=== PATIENT | female | born 1955 | race Caucasian/White ===

== ENCOUNTER 2016-07-04 06:03 | Day surgery (SDC) ==
[~2016-07-04 06:03] MED LIST: LEVAQUIN 500 MG/D5W 100 ML ONE; LR 1,000 ML ONE
[2016-07-04 06:47] LABS: MANUAL DIFF NEEDED? NO
[2016-07-04 06:50] LABS: BASO% 0.2 % (0.0-0.8); EOS# 0.24 X1000 (0.0-0.7); EOS% 3.8 % (0.0-10.0); HEMATOCRIT 43.8 % (37.0-47.0); HEMOGLOBIN 15.1 g/dL (12.0-16.0); LYMPH# 2.92 X1000 (1.2-3.4); LYMPH% 45.8 % (20.5-51.1); MCH 29.6 PG (27-31); MCHC 34.5 g/dL (33-37); MCV 85.9 FL (81-99); MONO# 0.62 X1000 (0.11-0.59); MONO% 9.7 % (1.7-9.3); MPV 11.2 FL (7.4-10.4); NEUT% 40.5 % (42.2-75.2); PLT 268 X1000 (130-400)
--- NOTE | 2016-07-04 07:12 | EKG Report ---
Test Performed on : 07/04/2016 06:34:18 AM Test Reason : PREOP Blood Pressure : / mmHG Vent. Rate : 057 BPM Atrial Rate : 057 BPM P-R Int : 130 ms QRS Dur : 078 ms QT Int : 536 ms P-R-T Axes : 070 035 000 degrees QTc Int : 521 ms Sinus bradycardia. T wave abnormality, consider lateral ischemia Prolonged QT Abnormal ECG When compared with ECG of 03-MAY-2016 16:11, T wave inversion now evident in Inferior leads T wave inversion now evident in Lateral leads Clinical Correlation advised new changves s/o inferior/lateral ischemia Confirmed by Reymundo Clement DO ([id number]) on 07/04/2016 6:50:54 PM
[2016-07-04 07:13] LABS: AGAP 13; ALBUMIN 3.8 g/dL (3.5-5.0); ALKALINE PHOSPHATASE 102 U/L (32-104); BUN 10 mg/dL (8-22); CALCIUM 9.1 mg/dL (8.8-10.2); CHLORIDE 101 mmol/L (98-107); COSMO 279; GOT 32 U/L (10-30); GPT 17 U/L (10-36); POTASSIUM 3.6 mmol/L (3.5-5.1); SODIUM 141 mmol/L (136-145); TCO2 27 mmol/L (25-35); TOTAL BILIRUBIN 0.41 mg/dL (0.20-1.00); TOTAL PROTEIN 7.1 g/dL (6.3-8.3)
--- NOTE | 2016-07-04 09:14 | Diag Imaging Result Document ---
PROCEDURE NAME: CHEST-2 VIEWS - 07/04/2016 PA AND LATERAL RADIOGRAPHS OF THE CHEST: COMPARISON: 05/03/2016. FINDINGS: There is evidence of prior granulomatous disease, stable. The lungs are essentially clear otherwise. There is no definite pleural fluid collection. Cardiac silhouette and central vasculature are grossly unremarkable. There is, perhaps, mild hyperinflation suggesting possible COPD, stable. IMPRESSION: Possible mild COPD changes. No definite acute pathology.
[2016-07-04 09:21] LABS: URINE MICRO REVIEW NEEDED? NO; URINE SOURCE VOIDED
[2016-07-04 09:25] LABS: BILIRUBIN URINE NEGATIVE (NEGATIVE); BLOOD URINE TRACE (NEGATIVE); COLOR YELLOW; GLUCOSE URINE NEGATIVE (NEGATIVE); LEUKOCYTES URINE TRACE (NEGATIVE); NITRITE URINE NEGATIVE (NEGATIVE); PH URINE 6.5; PROTEIN URINE NEGATIVE (NEGATIVE); SP GRAVITY URINE 1.012; TURBIDITY URINE CLEAR (CLEAR); UR EPITHELIAL CELLS <10 /HPF (<10); URINE BACTERIA 1+ /HPF; URINE RBC <10 /HPF (<10); URINE WBC <10 /HPF (<10); UROBILINOGEN URINE 2 mg/dL (NORMAL)
[2016-07-04] MEDS ORDERED: SENSORCAINE 0.25%/EPI 1:200,000 ONE (09:45)
[2016-07-04] MEDS ORDERED: SODIUM CHLORIDE 0.9% ONE (09:45)
[2016-07-04] MEDS ORDERED: LR 1,000 ML ONE ×2 (09:45→12:36)
[2016-07-04] MEDS: DILAUDID ONE ×4 (11:40→12:10)
--- NOTE | 2016-07-04 11:44 | OPERATIVE NOTE ---
PROCEDURE DATE: 07/04/2016 PREOPERATIVE DIAGNOSES: 1. Chronic acalculous cholecystitis. 2. History of hepatitis C. PROCEDURE: 1. Laparoscopic cholecystectomy. 2. Operative cholangiogram with liver biopsy. OPERATIVE FINDINGS: A fair amount a cirrhosis of the liver, chronic cholecystitis. Negative OC except for dilated common bile duct, but there was flow of contrast into the duodenum. DESCRIPTION OF PROCEDURE: The patient was brought to the operating room. After satisfactory induction of IV and endotracheal anesthesia, athrombic TEDs and a Kelly catheter were placed. Her abdomen was broadly prepped and draped in the appropriate manner for laparoscopy. Initially, the infraumbilical area was infiltrated with 0.25% Marcaine with epinephrine. Dissection was taken sharply down through skin and subcutaneous tissue. Fascia was tacked with 0 Surgilon and incised. Under direct visualization, a Felisha trocar was placed. The abdomen was insufflated to 3 and 1/2 L of carbon dioxide. Again, after infiltration with Marcaine and epinephrine, one 10 and two 5 mm trocars were placed. The patient was repositioned. The gallbladder was seen to be involved with dense omental adhesions. These were peeled down. The gallbladder was grasped and retracted superiorly. The hilar structures were dissected. The cystic artery were skeletonized, doubly clipped, and divided. The cystic duct cholangiogram revealed good flow of contrast into the duodenum but a dilated common duct system. The catheter was removed. The duct was doubly clipped and divided. The gallbladder was dissected from the liver bed with the use of monopolar scissors and removed. Inspection of the liver bed revealed some bleeding points that were controlled by electrocautery. The superior area of the gallbladder fossa subsequently underwent a liver biopsy with hot scissors. This was, likewise, controlled with electrocautery and Surgicel gauze. The subhepatic and subphrenic spaces were subsequently aspirated free of the small amount of bile and blood. All trocars were removed after abdominal deflation. The subumbilical incision underwent fascial closures of 0 Surgilon. All skin incisions were closed with stainless steel clips. Sterile dressings were applied. She was awakened and extubated in the operating room and transferred to recovery. ESTIMATED BLOOD LOSS: Around 20 mL.
[2016-07-04] MEDS ORDERED: FENTANYL ONE (12:26)
[2016-07-04] MEDS ORDERED: DIPRIVAN 1% ONE (12:26)
[2016-07-04] MEDS ORDERED: ROBINUL ONE (12:36)
[2016-07-04] MEDS ORDERED: XYLOCAINE-MPF 2% ONE (12:36)
[2016-07-04] MEDS ORDERED: ZOFRAN ONE (12:36)
[2016-07-04] MEDS ORDERED: NEOSTIGMINE ONE (12:36)
[2016-07-04] MEDS ORDERED: NORCO-10 ONE (12:36)
[2016-07-04] MEDS ORDERED: DECADRON ONE (12:36)
[2016-07-04 13:02] VITALS: BP 166/82
--- NOTE | 2016-07-04 13:39 | Diag Imaging Result Document ---
PROCEDURE NAME: OPERATIVE CHOLANGIOGRAM - 07/04/2016 INTRAOPERATIVE CHOLANGIOGRAM: COMPARISON: None available. FINDINGS: A single spot fluoroscopic view of the opacified common bile duct was provided which was performed during cholecystectomy by Dr. López Mcgrath. There appears to be a long segment of narrowing at the distal common bile duct. A long segment stricture is possible. Please correlate with live fluoroscopic imaging. The common bile duct otherwise is perhaps slightly dilated. No well-defined filling defect can be identified. Contrast is seen flowing into the small bowel. IMPRESSION: As above. Please correlate with live fluoroscopic imaging.
== END 2016-07-04 13:45 | disposition home or self-care (01) ==
LOC: OPS 06:03
PROVIDERS: ATTEND Surgery
DX: K81.1 Chronic cholecystitis (principal); K74.0 Hepatic fibrosis; E11.9 Type 2 diabetes mellitus without complications; M19.90 Unspecified osteoarthritis, unspecified site; B19.20 Unspecified viral hepatitis C without hepatic coma; Z87.891 Personal history of nicotine dependence; Z23 Encounter for immunization
CPT/HCPCS: 71020; 74300; 80053; 81001; 85025; 88304; 88307; 88313; 93005; 93010; J1100; J1170; J2405; J3010; J7120; Q9966; J2710

== ENCOUNTER 2016-09-13 14:41 | Observation (INO) ==
[2016-09-13] MEDS ORDERED: ASPIRIN PO STA (14:44)
[2016-09-13 15:08] LABS: MANUAL DIFF NEEDED? NO
[2016-09-13 15:09] LABS: BASO% 0.3 % (0.0-0.8); EOS# 0.34 X1000 (0.0-0.7); EOS% 4.4 % (0.0-10.0); HEMATOCRIT 39.8 % (37.0-47.0); HEMOGLOBIN 12.8 g/dL (12.0-16.0); IMM GRAN# 0.01 X1000 (0.0-0.04); IMM GRAN% 0.1 % (0.0-0.5); LYMPH% 49.6 % (20.5-51.1); MCHC 32.2 g/dL (33-37); MONO# 0.82 X1000 (0.11-0.59); MONO% 10.7 % (1.7-9.3); MPV 10.7 FL (7.4-10.4); NEUT% 34.9 % (42.2-75.2); PLT 283 X1000 (130-400); RBC 4.74 XMIL (4.2-5.4)
--- NOTE | 2016-09-13 15:21 | PROVIDER DOCUMENTATION ---
HPI-Chest Pain - General Chief Complaint: Chest Pain Stated Complaint: CHEST PAIN/NAUSEA Time Seen by Provider: 09/13/16 14:54 Source: patient Allergies/Adverse Reactions: Patient Allergies Allergy/AdvReac Type Severity Reaction Status Date / Time codeine Allergy RASH Verified 07/11/16 11:06 Penicillins Allergy RASH Verified 07/11/16 11:06 Home Medications: Home Medication List Medication Instructions Recorded Confirmed Last Taken Type Gabapentin [Neurontin] 800 mg PO 4XDAY 05/30/14 07/22/16 07/22/16 15:00 History Methadone 40 mg PO DAILY 05/30/14 07/22/16 07/22/16 03:00 History Metformin [Glucophage] 500 mg PO DAILY 04/11/15 07/22/16 07/10/16 History Doxycycline 100 mg PO BID #14 capsule 07/16/16 07/22/16 07/22/16 10:00 Rx Hydrocodone/Acetaminophen [Friendship 1 each PO Q4H PRN PRN #30 tablet 08/10/16 Unknown Rx 10-325 Tablet] Multivitamin with Iron [One Daily 1 each PO DAILY #0 tablet 08/10/16 Unknown Rx with Iron] Ondansetron HCl [Zofran] 4 mg PO Q4H PRN PRN #10 tablet 08/10/16 Unknown Rx - History of Present Illness-CP Nature of Presenting Problem: patient is a 61 y/o F that presents to the ER after having an episode of back pain with substernal chest pain and nausea with diaphoresis. patient was on couch watching movie when episode happened. she has no pain or symptoms now. patient had recent stenting of CBD 6 weeks ago Location: reports: substernal Chest Pain Radiation: reports: back Quality of Pain: reports: dull Severity in ED: moderate Onset/Duration: abrupt, this afternoon Timing: improving, gone now Context/Activities at Onset: reports: light activity Modifying Factors: improves with: nothing Associated Symptoms: reports: back pain, diaphoresis, nausea, shortness of breath. denies: abdominal pain, dizziness, fatigue, fever/chills, vomiting Nitro Today/Relief: no nitro taken today Aspirin Treatment Today: 325 mg x 1, provided by ED Prior Chest Pain/Cardiac Workup: reports: non-cardiac Similar Symptoms Previously?: No Recently Seen Here or By Another Healthcare Provider: No Review of Systems - Adult - REVIEW OF SYSTEMS - ADULT Constitutional: denies: chills, fever Eyes: reports: no symptoms reported Ears, Nose, Mouth & Throat: denies: ear pain, sinus problem, throat pain, throat swelling Cardiovascular: reports: chest pain. denies: palpitations, syncope Respiratory: reports: shortness of breath. denies: cough, wheezing Gastrointestinal: reports: nausea. denies: abdominal pain, diarrhea, vomiting Genitourinary: reports: no symptoms reported Musculoskeletal: reports: back pain. denies: joint pain, muscle aches Integumentary: reports: no symptoms reported Neurological: denies: dizziness/vertigo, headache/migraines, seizure, syncope Psychiatric: reports: no symptoms reported Endocrine: reports: no symptoms reported Hematologic/Lymphatic: reports: no symptoms reported Allergic/Immunologic: reports: no symptoms reported All Other Systems: Reviewed and Negative Past History - Adult - PAST MEDICAL HISTORY-ADULT Review of Records: reports: Old Records Reviewed, Nursing Assessment Review, Medications Reviewed Musculoskeletal: reports: chronic pain Psychiatric: reports: anxiety Endocrine/Immune: reports: Diabetes - PRIOR SURGERIES/PROCEDURES Surgical/Procedure History: reports: cholecystectomy (with bile duct stent), hysterectomy, bowel surgery (polyps removed and hemorroidectomy), joint replacement, other (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.) - IMMUNIZATION STATUS Childhood Immunizations: See Nurse Assessment Flu Vaccine: See Nurse Assessment - FAMILY HISTORY Family History: reviewed, not pertinent - SOCIAL HISTORY Smoking: quit greater than 1 year, cigarettes Living Situation: family Physical Exam-General - PHYSICAL EXAM-ADULT Initial Vital Signs Reviewed: Yes - CONSTITUTIONAL General Appearance: alert, no apparent distress - EYES Eyes: PERRL/EOMI, pink conjunctivae - HEAD, EARS, NOSE, MOUTH & THROAT HENMT: normocephalic/atraumatic, moist mucous membranes, normal ENT inspection - NECK Neck: full range of motion, normal inspection. negative: lymphadenopathy - RESPIRATORY Respiratory: chest non-tender, lungs clear, normal breath sounds, no respiratory distress, no accessory muscle use - CARDIOVASCULAR Cardiovascular: regular rate, rhythm, no edema, no murmur - GASTROINTESTINAL (ABDOMEN) Abdominal Exam: normal bowel sounds, soft, no organomegaly, no pulsatile mass, tenderness (mild rUQ) - MUSCULOSKELETAL Extremity: normal capillary refill, pelvis stable, other (right prosthetic leg) - SKIN Integumentary: normal color, warm/dry - NEUROLOGIC Neurologic: grossly normal, no motor/sensory deficits - PSYCHIATRIC Psych/Mental Status: normal mood/affect, normal thought content, normal thought process, oriented x 3 Progress - PLAN OF CARE/RESULTS Progress/Plan/Lab Results: plan of care-cardiac work up 1542-due to elevated d-dimer, ct angio r/o pe ordered Vital Signs Temp Pulse Resp BP Pulse Ox 09/13/16 17:19 59 L 22 119/71 96 09/13/16 16:27 67 18 114/62 98 09/13/16 14:47 97.6 F 71 18 136/75 97 codeine Allergy (Verified 07/11/16 11:06) RASH Penicillins Allergy (Verified 07/11/16 11:06) RASH Gabapentin [Neurontin] 800 mg PO 4XDAY 05/30/14 Methadone 40 mg PO DAILY 05/30/14 Metformin [Glucophage] 500 mg PO DAILY 04/11/15 Doxycycline 100 mg PO BID #14 capsule 07/16/16 Hydrocodone/Acetaminophen [Friendship 10-325 Tablet] 1 each PO Q4H PRN PRN #30 tablet 08/10/16 Multivitamin with Iron [One Daily with Iron] 1 each PO DAILY #0 tablet 08/10/16 Ondansetron HCl [Zofran] 4 mg PO Q4H PRN PRN #10 tablet 08/10/16 Laboratory 09/13/16 09/13/16 09/13/16 15:00 15:00 15:00 WBC 7.66 RBC 4.74 Hgb 12.8 Hct 39.8 MCV 84.0 MCH 27.0 MCHC 32.2 L RDW Std Deviation 16.8 H Plt Count 283 MPV 10.7 H Immature Gran % (Auto) 0.1 Neut % (Auto) 34.9 L Lymph % (Auto) 49.6 [place] % (Auto) 10.7 H Eos % (Auto) 4.4 Baso % (Auto) 0.3 Immature Gran # (Auto) 0.01 Neut # (Auto) 2.67 Lymph # (Auto) 3.80 H [place] # (Auto) 0.82 H Eos # (Auto) 0.34 Baso # (Auto) 0.02 PT 13.7 INR 1.02 APTT (Factor Assay) 35.3 D-Dimer 1.08 H Sodium Potassium Chloride Carbon Dioxide Anion Gap BUN Creatinine Estimated GFR/1.73 m2 BUN/Creatinine Ratio Glucose Calculated Osmolality Calcium Magnesium Total Bilirubin AST ALT Alkaline Phosphatase Creatine Kinase Troponin T Vtz-[id number]-Gdxuurojvge Pept Total Protein Albumin Globulin Albumin/Globulin Ratio 09/13/16 09/13/16 09/13/16 15:00 15:00 15:00 WBC RBC Hgb Hct MCV MCH MCHC RDW Std Deviation Plt Count MPV Immature Gran % (Auto) Neut % (Auto) Lymph % (Auto) [place] % (Auto) Eos % (Auto) Baso % (Auto) Immature Gran # (Auto) Neut # (Auto) Lymph # (Auto) [place] # (Auto) Eos # (Auto) Baso # (Auto) PT INR APTT (Factor Assay) D-Dimer Sodium 141 Potassium 3.4 L Chloride 101 Carbon Dioxide 28 Anion Gap 12 BUN 8 Creatinine 0.5 Estimated GFR/1.73 m2 > 60 BUN/Creatinine Ratio 16 Glucose 97 Calculated Osmolality 280 Calcium 9.1 Magnesium 2.0 Total Bilirubin 0.50 AST 32 H ALT 14 Alkaline Phosphatase 156 H Creatine Kinase 84 Troponin T < 0.010 Gdk-E-Pfcwaqrlpdl Pept 165 Total Protein 7.5 Albumin 3.6 Globulin 4.0 Albumin/Globulin Ratio 1.0 Orders Category Date Time Status Cardiac Monitoring DIRECTED Care 09/13/16 14:44 Active Oxygen Therapy- ED Nursing DIRECTED Care 09/13/16 14:44 Active Saline Loc NOW Care 09/13/16 14:44 Active ABD/PELVIS/PULM ARTERIES [CT] Stat Exams 09/13/16 15:41 Taken CHEST-2 VIEWS [RAD] Stat Exams 09/13/16 14:44 Draft CBC WITH ELECTRONIC DIFF [HEME] Stat Lab 09/13/16 15:00 Completed CK PROFILE [SP CHEM] Stat Lab 09/13/16 15:00 Completed COMPREHENSIVE METABOLIC PANEL [CHEM] Stat Lab 09/13/16 15:00 Completed D-DIMER PL [COAG] Stat Lab 09/13/16 15:00 Completed MAGNESIUM [CHEM] Stat Lab 09/13/16 15:00 Completed PRO B-NATRIURETIC PEPTIDE Stat Lab 09/13/16 15:00 Com[address]IME WITH INR PL [COAG] Stat Lab 09/13/16 15:[address] [COAG] Stat Lab 09/13/16 15:00 Completed TROPONIN T Stat Lab 09/13/16 15:00 Completed Aspirin Med 09/13/16 14:44 Discontinued 325 mg PO STAT STA Hydromorphone [Dilaudid] Med 09/13/16 16:13 Discontinued 1 mg IV NOW ONE Lorazepam [Ativan] Med 09/13/16 16:13 Discontinued 1 mg IV NOW ONE EKG [EKG] Stat Ther 09/13/16 14:44 Draft - EKG 1 Time of EKG reading by physician:: 14:45 EKG Read and Signed by:: Gretta Barker EKG Interpretation (*Must complete 3 of following elements*): Abnormal Rate: 63 Rhythm: NSR QRS: LVH ST Wave: normal Comments: prolonged QT - XRAY 1 XRAY Study: Chest Impression: Normal XRAY Interpretation: nad - CT/MRI 1 CT Study: Abdomen, Angiogram, Pelvis Impression: Abnormal CT Results: chest nad, AP perihepatic abscesses are much smaller - CONSULTS/PCP/HOSPITALIST Notification #1 *Consult/PCP/Hospitalist*: ( rn radiation for hospitalist) Time Discussed: 17:40 Consult Disposition: Admit Departure - Departure Time of Disposition Order: 17:40 DIAGNOSIS: Chest pain in adult, Perihepatic abscess Disposition: ADMITTED INPATIENT 09 Certified Medical Emergency: Emergent Condition: Stable Attestation - Scribe Verification/Attestation Scribe:: Thor Gama Acting as Scribe for:: Gretta Barker Scribe documention review:: This chart was documented by a scribe and accurately reflects the service the provider performed and the decisions made by the provider. Physician Attestation - Physician Attestation I, the provider, attest to the following statement:: Gretta Barker Physician documentation Attestation:: This documentation recorded by the scribe accurately reflects the service I personally performed and the decisions made by me.
[2016-09-13 15:22] LABS: INR 1.02 (0.86-1.15); PROTIME 13.7 Seconds (12.1-15.5)
[2016-09-13 15:23] LABS: PTT PL 35.3 Seconds (22.6-43.9)
[2016-09-13 15:31] LABS: AGAP 12; ALBUMIN 3.6 g/dL (3.5-5.0); ALKALINE PHOSPHATASE 156 U/L (32-104); BUN 8 mg/dL (8-22); CALCIUM 9.1 mg/dL (8.8-10.2); CHLORIDE 101 mmol/L (98-107); CK PROFILE 84 U/L (24-173); COSMO 280; GOT 32 U/L (10-30); GPT 14 U/L (10-36); POTASSIUM 3.4 mmol/L (3.5-5.1); SODIUM 141 mmol/L (136-145); TCO2 28 mmol/L (25-35); TOTAL PROTEIN 7.5 g/dL (6.3-8.3)
--- NOTE | 2016-09-13 15:51 | EKG Report ---
Test Performed on : 09/13/2016 2:45:52 PM Test Reason : CHEST PAIN Blood Pressure : / mmHG Vent. Rate : 063 BPM Atrial Rate : 063 BPM P-R Int : 128 ms QRS Dur : 080 ms QT Int : 482 ms P-R-T Axes : 069 076 055 degrees QTc Int : 493 ms Normal sinus rhythm. Left ventricular hypertrophy with repolarization abnormality Prolonged QT Abnormal ECG When compared with ECG of 25-JUL-2016 21:15, Vent. rate has decreased BY 49 BPM Questionable change in QRS axis Nonspecific T wave abnormality no longer evident in Inferior leads Nonspecific T wave abnormality no longer evident in Anterolateral leads Unconfirmed Result
--- NOTE | 2016-09-13 15:53 | Diag Imaging Result Document ---
PROCEDURE NAME: CHEST-2 VIEWS - 09/13/2016 CHEST X-RAY 2 VIEWS: COMPARISON: 08/08/2016. FINDINGS: The central line has been removed. Lung volumes are much improved. Lungs are actually somewhat hyperexpanded now, suggesting COPD. There is improvement in the linear atelectasis or scarring in the left lung base. There may be a small infiltrate or nodule in the medial left lung base, probably residual from the previous consolidation here. Heart size is normal. IMPRESSION: Significant improvement from prior. Small residual opacity in the left lung base. Continued followup recommended.
[2016-09-13] MEDS ORDERED: ATIVAN IV ONE (16:13)
[2016-09-13] MEDS ORDERED: DILAUDID IV ONE (16:13)
--- NOTE | 2016-09-13 17:45 | Diag Imaging Result Document ---
PROCEDURE NAME: ABD/PELVIS/PULM ARTERIES - 09/13/2016 CT PULMONARY ANGIOGRAM WITH INTRAVENOUS CONTRAST: A CT dose reduction protocol was used. COMPARISON: Previous CTs. FINDINGS: Axial CT images of the chest were obtained after administering intravenous contrast. Coronal MIP images were generated. There is no definite pulmonary embolism. There is cardiomegaly. There is some patchy atelectasis bilaterally. There is some residual consolidation in the medial left lower lobe. IMPRESSION: Cardiomegaly. Improved, residual consolidation in the left lower lobe. CT ABDOMEN AND PELVIS WITH INTRAVENOUS CONTRAST: A CT dose reduction protocol was used. COMPARISON: 08/06/2016. FINDINGS: There is a much smaller, rim-enhancing subphrenic fluid collection. This now measures 5.9 x 3.1 cm. There is some trace perihepatic free fluid. There are 2 common bile duct stents. No significant biliary dilation. The subhepatic fluid collection has decreased in size, now measuring 5.3 x 3 cm. No new fluid collections. No bowel obstruction or inflammation. No free air. IMPRESSION: 1. Decrease in size of the subphrenic and subhepatic abscesses. 2. There are 2 common bile duct stents in place. No biliary dilation. [facility]
[2016-09-13] MEDS ORDERED: LEVAQUIN PO ONE (18:00)
[2016-09-13] MEDS ORDERED: VANCOMYCIN 1 GM/NS 250 ML IV ONE (18:00)
[2016-09-13] MEDS ORDERED: ZOFRAN IV PRN (20:36)
[2016-09-13] MEDS ORDERED: NORCO-10 PO PRN (20:38)
[2016-09-13] MEDS ORDERED: NS 1,000 ML IV SCH (20:45)
[2016-09-13] MEDS ORDERED: VANCOMYCIN IV PER PHARMACY MISC SCH ×2 (20:45→22:15)
[2016-09-13] MEDS ORDERED: ROCEPHIN 1 GM/NS 50 ML IV SCH (20:45)
[2016-09-13] MEDS: NEURONTIN PO SCH (21:10)
[2016-09-13] MEDS ORDERED: VANCOMYCIN 500 MG/NS 100 ML IV ONE ×2 (22:00→23:00)
[2016-09-14 05:53] LABS: HEMATOCRIT 40.6 % (37.0-47.0); HEMOGLOBIN 13.2 g/dL (12.0-16.0); MCHC 32.5 g/dL (33-37); MCV 83.2 FL (81-99); MPV 10.6 FL (7.4-10.4); RBC 4.88 XMIL (4.2-5.4)
[2016-09-14 06:17] LABS: INR 1.04 (0.86-1.15); PROTIME 13.9 Seconds (12.1-15.5)
[2016-09-14 06:20] LABS: AGAP 11; ALBUMIN 3.5 g/dL (3.5-5.0); ALKALINE PHOSPHATASE 150 U/L (32-104); BUN 6 mg/dL (8-22); CALCIUM 9.1 mg/dL (8.8-10.2); CHLORIDE 105 mmol/L (98-107); COSMO 279; GOT 30 U/L (10-30); GPT 13 U/L (10-36); MAGNESIUM 1.8 mg/dL (1.5-2.7); POTASSIUM 3.8 mmol/L (3.5-5.1); SODIUM 141 mmol/L (136-145); TCO2 25 mmol/L (25-35); TOTAL PROTEIN 7.3 g/dL (6.3-8.3)
[2016-09-14] MEDS ORDERED: METHADONE PO SCH (09:00)
[2016-09-14] MEDS ORDERED: MULTI-VITAMIN PO SCH (09:00)
[2016-09-14] MEDS: NEURONTIN PO SCH ×2 (09:02→13:12)
[2016-09-14] MEDS ORDERED: VANCOMYCIN 1,200 MG in NS 250 ML IV SCH (11:00)
[2016-09-14 15:07] VITALS: BP 128/74
--- NOTE | 2016-09-14 15:07 | HISTORY AND PHYSICAL ---
CHIEF COMPLAINT: "I had chest pain for about 20 minutes yesterday around 1:30 p.m. while watching a movie." HISTORY OF PRESENTING ILLNESS: This is a 61-year-old female who presented to [facility] ER with complaints of substernal chest pain, nausea with diaphoresis. States that she has been on her couch watching a movie when the episode occurred around 1:30 p.m. It is noted that she had recent stenting of her common bile duct approximately 6 weeks ago when she was admitted [facility]. Workup in the ER showed a D-dimer of 1.08. Cardiac enzymes x2 sets have been negative. ProBNP of 165. EKG showed normal sinus rhythm at 63. So she is being admitted for further evaluation and treatment. PAST MEDICAL HISTORY: Diabetes type 2. Hepatitis C. Anxiety. Chronic pain. 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 FAMILY HISTORY: Noncontributory.Social history: She currently lives alone. Smokes approximately 5 cigarettes a day, uses marijuana 3-4 times a week, and denied any alcohol use. ALLERGIES: Codeine and penicillin. HOME MEDICATIONS: She takes: Doxycycline 100 mg p.o. b.i.d. is being held. Glucophage 500 mg p.o. daily is being held. We will continue Neurontin 800 mg p.o. 4 times daily, [place] 10 1 p.o. q.4 hours p.r.n., methadone 40 mg p.o. daily, and a multivitamin with iron 1 p.o. daily. LABORATORY/DIAGNOSTIC DATA: Showed a white blood cell count of 7.66, hemoglobin 12.8, hematocrit 39.8, platelets 283,000. PT and INR of 13.7 and 1.02, with a D-dimer of 1.08. Sodium of 141, potassium 3.4, chloride 101, CO2 28, BUN of 8, creatinine 0.5, glucose of 97, magnesium of 2. Cardiac enzymes x2 sets have been negative. EKG with normal sinus rhythm at 63. Chest x-ray showed significant improvement from prior with a small residual opacity in the left lung base. Abdomen and pelvic CT showed an impression of decrease in size of her subphrenic and subhepatic abscesses and there are 2 common bile duct stents in place, no biliary dilation. REVIEW OF SYSTEMS: She denied any fever, chills, blurred vision, dizziness. She was positive for substernal chest pain. Denied any shortness of breath, coughing. She had some nausea and diaphoresis. Denied any abdominal pain, constipation, diarrhea, burning or hurting with urination. PHYSICAL EXAMINATION: VITAL SIGNS: On arrival, she had a temperature of 97.6 degrees, pulse 71, respirations 18, blood pressure 136/75, saturating 97% on room air. GENERAL: This is a 61-year-old female who is lying in the bed, and answers questions appropriately. HEENT: Normocephalic and atraumatic. Pupils are equal, round, and reactive to light. The extraocular movements are intact. The oropharynx and nares are clear. NECK: Supple. LUNGS: With some wheezing on inspiration to her upper lobes bilaterally. Equal lung expansion, chest wall movement are noted. HEART: With regular rate and rhythm. No murmurs, rubs, or gallops. ABDOMEN: Soft, and nontender, nondistended. Bowel sounds are present x4 quadrants. EXTREMITIES: There is no clubbing, cyanosis, or edema. NEUROLOGICAL: The cranial nerves 2-12 are grossly intact. ASSESSMENT: 1. Chest pain. 2. Elevated D-dimer. 3. Diabetes. 4. Hepatitis C, history of. 5. Chronic pain. PLAN: She was admitted to the medical unit at [facility], placed on telemetry, regular diet. We will get ultrasound of bilateral lower extremities. A CT of the pulmonary arteries was obtained that showed cardiomegaly, improved residual consolidation in the left lower lobe, no definite pulmonary embolism. We will continue her home medications as previously identified, continue her on Rocephin 1 gram IV q.24, vancomycin per pharmacy protocol for her subphrenic and subhepatic abscesses. Dictated by JUVENAL Guzman for Ty Johns MD
[2016-09-14] MEDS ORDERED: ROCEPHIN 1 GM/NS 50 ML IV SCH (21:00)
--- NOTE | 2016-09-17 15:19 | Extremity Venous Study ---
PROCEDURE NAME: Venous U/S Bilateral Legs - 09/14/2016 BILATERAL LOWER EXTREMITY VENOUS DOPPLER ULTRASOUND: COMPARISON: None. FINDINGS: The deep veins of the lower extremities are fully compressible. There is normal color and pulse wave Doppler signal. IMPRESSION: Negative exam.
== END 2016-09-14 17:51 | disposition home or self-care (01) ==
LOC: P.ED 14:41 → UNDOADMOB 18:34 → INTOOBSV 18:34 → P.MEDSURG 18:34
PROVIDERS: ADMIT Family Medicine
DX: K65.1 Peritoneal abscess (principal); R79.1 Abnormal coagulation profile; E11.9 Type 2 diabetes mellitus without complications; Z86.19 Personal history of other infectious and parasitic diseases; I51.7 Cardiomegaly; G89.29 Other chronic pain; R11.0 Nausea; M54.5 Low back pain; R07.2 Precordial pain; R61 Generalized hyperhidrosis; R06.02 Shortness of breath; F12.90 Cannabis use, unspecified, uncomplicated; R10.811 Right upper quadrant abdominal tenderness; F17.210 Nicotine dependence, cigarettes, uncomplicated; Z79.899 Other long term (current) drug therapy; Z79.84 Long term (current) use of oral hypoglycemic drugs; Z96.641 Presence of right artificial hip joint; Z89.511 Acquired absence of right leg below knee; Z86.010 Personal history of colon polyps
CPT/HCPCS: 71020; 71275; 74177; 80053; 82550; 83735; 83880; 84484; 85025; 85027; 85379; 85610; 85730; 87040; 93005; 93970; 96365; 96375; J0696; J1170; J2060; J3370; J7030; J7050; Q9967; S0109